=== PATIENT | female | born 1950 | race Caucasian/White ===

== ENCOUNTER 2016-11-30 16:10 | Emergency (ER) | payer SELFPAY ==
[~2016-11-30] VITALS: Ht 157.5 cm; Wt 102.0 kg
[~2016-11-30 16:10] MED LIST: BENA20TA65 PO
[2016-11-30 16:19] VITALS: Ht 157.5 cm; Wt 102.0 kg
== END 2016-11-30 22:48 | disposition left against medical advice (07) ==
LOC: E/R 16:10
DX: Z53.21 Procedure and treatment not carried out due to patient leaving prior to being seen by health care provider (principal)

== ENCOUNTER 2017-06-01 11:25 | Emergency (ER) | payer OTHER ==
[~2017-06-01] VITALS: Ht 165.1 cm; Wt 100.0 kg
[2017-06-01 11:29] VITALS: Ht 165.1 cm; Wt 100.0 kg
[2017-06-01] MEDS ORDERED: NICARDipine HCL 30 MG CAPSULE PO ONE (15:30)
--- NOTE | 2017-06-01 15:37 | ERD ---
ER Documentation Chief Complaint Date/Time DATE: 06/01/17 TIME: 15:35 Chief Complaint feels dizzy HPI Patient is a 66-year-old female with hypertension who presents with dizziness. She said that she woke up with high blood pressure and dizziness. She took her blood pressure medicine and the blood pressures come down a bit. She felt dizzy and unsteady on her feet. She said that she went to bed last night and was feeling fine. She feels better now and is no longer dizzy. She said that at that time her blood pressure was over 200 and ALT approximately 170. She is under a lot of stress recently with caring for her sick . She denies chest pain or headache. Upon review of old medical records this is the patient' s eighth visit to the ER since 2007. Her primary doctor is Dr. Holt and she has not called this doctor as of yet. ROS All systems reviewed and are negative except as per history of present illness. Medications Home Meds Reported Medications Benazepril Hcl* (Lotensin*) 20 Mg Tablet, 20 MG PO DAILY 12/19/11 Allergies Allergies: Coded Allergies: No Known Allergy (Verified , 05/17/15) PMhx/Soc History of Surgery: No Anesthesia Reaction: No Hx Neurological Disorder: No Hx Respiratory Disorders: No Hx Cardiac Disorders: Yes (htn) Hx Psychiatric Problems: No Hx Miscellaneous Medical Probl: No Hx Alcohol Use: Yes (PT STATED "SOMETIMES") Hx Substance Use: No Hx Tobacco Use: No FmHx Family History: No diabetes Physical Exam Vitals Vital Signs Date Time Temp Pulse Resp B/P Pulse Ox O2 Delivery O2 Flow Rate FiO2 06/01/17 12:20 176/81 06/01/17 11:29 98.4 78 18 201/93 99 Physical Exam Const: Anxious Head: Atraumatic Eyes: Normal Conjunctiva ENT: Normal External Ears, Nose and Mouth. Neck: Full range of motion..~ No meningismus. Resp: Clear to auscultation bilaterally Cardio: Regular rate and rhythm, no murmurs Abd: Soft, non tender, non distended. Normal bowel sounds Skin: No petechiae or rashes Back: No midline or flank tenderness Ext: No cyanosis, or edema Neur: Awake and alert, no slurred speech, cranial nerves II through XII intact, strength is 5 out of 5 in all 4 extremities, sensation intact Psych: Anxious but no suicidal or homicidal ideation Results 24 hrs Laboratory Tests Test 06/01/17 15:18 Bedside Glucose 108mg/dL Current Medications Medications (Trade) Dose Ordered Sig/Jabier Route PRN Reason Start Time Stop Time Status Last Admin Dose Admin Nicardipine HCl (Cardene) 30 mg ONCE ONCE PO 06/01/17 15:30 06/01/17 15:31 DC 06/01/17 15:26 Procedures/MDM EKG read by me: Rate/Rhythm: Regular rate and rhythm at a rate of 73 Intervals: Normal Impression: No evidence of ischemia or arrhythmia Accu-Chek normal at 108. Patient is a 66-year-old female presents with high blood pressure and dizziness. She has no signs of slurred speech, weakness, or other stroke symptoms at this time. She is feeling a lot of stress recently with caring for her sick . Her Accu-Chek is normal. Her EKG shows no signs of ischemia or arrhythmia. At this point I doubt acute stroke, intrarenal hemorrhage, intracranial mass, acute coronary syndrome, or hypoglycemia. I believe outpatient management is appropriate but the patient will need close follow-up with her primary doctor within 24-48 hours. She was given Cardene by mouth. I offered her meclizine but she said that she is no longer dizzy and does not want meclizine. She can return for any worsening symptoms. Departure Diagnosis: Primary Impression: Hypertension Hypertension type: essential hypertension Qualified Code: I10 - Essential hypertension Additional Impression: Dizziness Condition: Fair Patient Instructions: High Blood Pressure (Hypertension), Dizziness, Unk Cause Referrals: Dr. Holt Additional Instructions: Call your primary care doctor TOMORROW for an appointment during the next 1-2 days.See the doctor sooner or return here if your condition worsens before your appointment time. DAVY GERBER MD Jun 01, 2017 15:37
[2017-06-01 15:58] VITALS: BP 146/85; PULSE 68; RESP 15; TEMP 97.8
== END 2017-06-01 16:10 | disposition home or self-care (01) ==
LOC: E/R 11:25
DX: I10 Essential (primary) hypertension (principal)
CPT/HCPCS: 82962; 93005

== ENCOUNTER 2018-06-24 05:00 | Emergency (ER) | END 2018-06-24 07:19 | disposition home or self-care (01) ==

== ENCOUNTER 2018-09-28 04:30 | Emergency (ER) | END 2018-09-28 07:12 | disposition home or self-care (01) ==

== ENCOUNTER 2018-10-01 03:03 | Emergency (ER) | END 2018-10-01 04:50 | disposition home or self-care (01) ==

== ENCOUNTER 2019-01-22 03:27 | Emergency (ER) | payer OTHER ==
[~2019-01-22] VITALS: Wt 96.3 kg
[~2019-01-22 03:27] MED LIST changes: +ASCO500C7 PO; +CALC-143 PO; +HYDR12.58 PO
[2019-01-22 03:34] VITALS: PULSE 80; RESP 18
[2019-01-22 04:09] VITALS: BP 134/77
== END 2019-01-22 05:28 | disposition left against medical advice (07) ==
LOC: E/R 03:27
DX: Z53.21 Procedure and treatment not carried out due to patient leaving prior to being seen by health care provider (principal)
CPT/HCPCS: 93005

== ENCOUNTER 2019-07-29 00:53 | Emergency (ER) | payer OTHER ==
[~2019-07-29] VITALS: Ht 157.5 cm; Wt 99.5 kg
[2019-07-29 01:06] VITALS: Ht 157.5 cm; Wt 99.5 kg
[2019-07-29 02:00] VITALS: BP 154/97; PULSE 89; RESP 18
== END 2019-07-29 02:00 | disposition home or self-care (01) ==
LOC: E/R 00:53
DX: I10 Essential (primary) hypertension (principal)
CPT/HCPCS: 99282

== ENCOUNTER 2019-08-29 22:25 | Emergency (ER) | payer OTHER ==
[~2019-08-29] VITALS: Ht 157.5 cm; Wt 98.0 kg
[2019-08-29 22:28] VITALS: Ht 157.5 cm; Wt 98.0 kg
[2019-08-30] MEDS ORDERED: SOD CHLORIDE 0.9% 1,000 ML IV STA (00:13)
[2019-08-30] MEDS ORDERED: LORAZEPAM 0.5 MG TAB PO ONE (00:30)
[2019-08-30 02:33] VITALS: BP 106/75; PULSE 83; RESP 18
== END 2019-08-30 02:33 | disposition home or self-care (01) ==
LOC: E/R 22:25
DX: I10 Essential (primary) hypertension (principal); I48.91 Unspecified atrial fibrillation; F41.9 Anxiety disorder, unspecified
CPT/HCPCS: 36415; 71045; 80053; 83690; 84484; 85025; 93005; 99285; J7030